=== PATIENT | male | born 1970 | race Caucasian/White ===

== ENCOUNTER 2017-09-06 20:33 | Emergency (ER) | payer OTHER ==
[~2017-09-06] VITALS: Ht 177.8 cm; Wt 116.6 kg
[~2017-09-06 20:33] MED LIST: AMLO10 PO; BACT800T5 PO; LAMO200T PO; PERC5TAB12 PO; PROZ40CA PO
[2017-09-06 20:35] VITALS: BP 152/90; PULSE 77; RESP 18; TEMP 98.5; O2SAT 96
[2017-09-06] MEDS ORDERED: MAPA500T13 PO (20:54)
[2017-09-06] MEDS ORDERED: IBUP1TAB7 PO (20:54)
--- NOTE | 2017-09-06 20:59 | PD ---
HPI Chief Complaint: Injury Time Seen by Provider: 20:46 Travel History International Travel<30 days: No Contact w/Intl Traveler<30days: No Traveled to known affect area: No History of Present Illness HPI 47-year-old male presents to the [facility] with ongoing and worsening right posterior medial knee pain since injuring it on [place] evening jumping off the back of a truck. Patient states her really swelled up. He is been taking Aleve without improvement. 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 They did never gives out or lock supple. He denies numbness, tingling, or weakness. Pain is currently about a 6 out of 10 but worsens at night to about a 9 out of 10. He has no known drug allergies. PFSH Past Medical History ADD: Yes ADHD: Yes Depression: Yes Cardiovascular Problems: Yes (htn on meds) Diminished Hearing: No Hypertension: Yes Influenza Vaccination: No Past Surgical History Surgical History: No Previous Surgery Other Surgery: Yes (VASECTOMY IN 1998) Social History Alcohol Use: Yes (wine, occasionally) Tobacco Use: No Substance Use: No Allergies-Medications (Allergen,Severity, Reaction): Coded Allergies: No Known Allergies (Verified , 09/09/16) Reported Meds & Prescriptions Reported Meds & Active Scripts Active Percocet (Oxycodone-Acetaminophen) 5-325 mg Tab 1 Tab PO Q4H PRN Bactrim DS (Sulfamethoxazole-Trimethoprim) 800-160 Mg Tab 1 Tab PO BID Reported Norvasc (Amlodipine Besylate) 10 Mg Tab 10 Mg PO DAILY Prozac (Fluoxetine HCl) 40 Mg Cap 40 Mg PO DAILY Lamotrigine 200 Mg Tab 200 Mg PO DAILY Review of Systems Except as stated in HPI: all other systems reviewed are Neg General / Constitutional: No: Fever Eyes: No: Visual changes HENT: No: Headaches Cardiovascular: No: Chest Pain or Discomfort Respiratory: No: Shortness of Breath Gastrointestinal: No: Abdominal Pain Genitourinary: No: Dysuria Musculoskeletal: Positive: Arthralgias, Pain Skin: No Rash Neurologic: No: Weakness Psychiatric: No: Depression Endocrine: No: Polydipsia Hematologic/Lymphatic: No: Easy Bruising Physical Exam Narrative GENERAL: Patient is in no acute distress. SKIN: Warm and dry. Normal color. Normal turgor HEAD: Atraumatic. Normocephalic. EYES: Pupils equal and round. No scleral icterus. No injection or drainage. ENT: No nasal bleeding or discharge. Mucous membranes pink and moist. Thanks is clear. NECK: Trachea midline. Supple and nontender. CARDIOVASCULAR: Regular rate and rhythm. RESPIRATORY: No accessory muscle use. Clear to auscultation. Breath sounds equal bilaterally. MUSCULOSKELETAL: Extremities without clubbing, cyanosis, or edema. No obvious deformities. Right knee appears normal without effusion or obvious deformity. Patient has mild tenderness with palpation along the medial joint line. Patient has increased pain with valgus stress. No laxity is appreciated. Negative Greyson sign is noted. NEUROLOGICAL: Awake and alert. No obvious cranial nerve deficits. Motor grossly within normal limits. Five out of 5 muscle strength in the arms and legs. Normal speech. PSYCHIATRIC: Appropriate mood and affect; insight and judgment normal. Data Data Last Documented VS Vital Signs Date Time Temp Pulse Resp B/P (MAP) Pulse Ox O2 Delivery O2 Flow Rate FiO2 09/06/17 20:35 98.5 77 18 152/90 (110) 96 Orders Orders Splint Or Brace Apply/Monitor (09/06/17 20:53) MDM Medical Decision Making Medical Screen Exam Complete: Yes Emergency Medical Condition: Yes Differential Diagnosis Right knee pain. Right knee strain. Tendinitis. Narrative Course Radiographic imaging is not felt warranted based on my history and physical of this time. Patient is placed in the immobilizer for comfort. Patient is to take regular ibuprofen 800 mg 3 times daily with food. Patient can take Mapap 500 mg 1-2 tabs every 6 hours as well. Patient should use heat followed by ice as discussed. Patient should follow with primary care physician if symptoms do not improve in the next week. Diagnosis Primary Impression: Right knee sprain Qualified Codes: S83.411A - Sprain of medial collateral ligament of right knee , initial encounter Referrals: Primary Care Physician Patient Instructions: General Instructions, Knee Immobilizer (ED), Knee Pain ( ED) Additional Instructions: Radiographic imaging is not felt warranted based on my history and physical of this time. Patient is placed in the immobilizer for comfort. Patient is to take regular ibuprofen 800 mg 3 times daily with food. Patient can take Mapap 500 mg 1-2 tabs every 6 hours as well. Patient should use heat followed by ice as discussed. Patient should follow with primary care physician if symptoms do not improve in the next week. Med/Other Pt SpecificInfo: Prescription(s) given Scripts Acetaminophen (Mapap Extra Strength) 500 Mg Tab 1000 MG PO Q6HR Y for PAIN, #80 TAB 0 Refills Prov: An Abad MD 09/06/17 Ibuprofen (Ibuprofen) 800 Mg Tab 800 MG PO Q8H Y for Pain/Inflammation, #60 TAB 0 Refills Prov: An Abad MD 09/06/17 Disposition: 01 DISCHARGE HOME Condition: Stable Marcelino Swanson Sep 06, 2017 20:59
== END 2017-09-06 21:35 | disposition home or self-care (01) ==
LOC: PHEFT 20:33
DX: S83.411A Sprain of medial collateral ligament of right knee, initial encounter (principal); X58.XXXA Exposure to other specified factors, initial encounter; Y93.39 Activity, other involving climbing, rappelling and jumping off
CPT/HCPCS: 99283; L1830